=== PATIENT | male | born 1940 | race African-American/Black ===

== ENCOUNTER 2017-03-30 13:36 | Emergency (ER) | payer OTHER ==
--- NOTE | 2017-03-30 14:11 | PDOC ---
Rapid Medical Evaluation Time Seen by Provider: 03/30/17 14:09 Medical Evaluation: Allergies Allergy/AdvReac Type Severity Reaction Status Date / Time No Known Allergies Allergy Verified 03/30/17 14:08 03/30/17 14:09 I have performed a brief in-person evaluation of this patient. The patient presents with a chief complaint of: slip and fall at home last night w/ L hand and lower back pain, did not hit head. H/o asthma, on asa Pertinent physical exam findings:minimal swelling over dorsum of L hand/wrist I have ordered the following:hand/wrist xray The patient will proceed to the ED for further evaluation.
[2017-03-30 14:15] VITALS: BP 140/74; PULSE 70; TEMP 98.2; BMI 24.4
[2017-03-30] MEDS ORDERED: IBUPROFEN 600 MG TABLET (FP) PO ONE ×2 (15:27→15:32)
--- NOTE | 2017-03-30 15:33 | PDOC ---
History of Present Illness - General Chief Complaint: Injury Stated Complaint: FALL/ SWOLLEN LT HAND, BACK PAIN Time Seen by Provider: 03/30/17 14:09 History Source: Patient Exam Limitations: No Limitations - History of Present Illness Initial Comments: 03/30/17 15:33 This is a 76-year-old left-hand dominant man without significant past medical history who presents to the emergency department today with left wrist pain status post slip and fall last night. Patient states she had mopped his hardwood floors in his apartment a mobile floors are still wet, he tried to stand from a beachchair which slid on the floor. Patient fell towards his right hand side turns and landed with his left wrist extended. Patient strep buttocks on the floor at the same time. Denies head trauma. Patient was able to get himself off floor without difficulty. He denies headaches, blurry vision, head trauma, chest pain, shortness of breath, abdominal pain, nausea, vomiting, dizziness. Past History - Past Medical History Allergies/Adverse Reactions: Allergies Allergy/AdvReac Type Severity Reaction Status Date / Time No Known Allergies Allergy Verified 03/30/17 14:08 COPD: No DVT: No - Immunization History Immunization Up to Date: Yes - Suicide/Smoking/Psychosocial Hx Smoking History: Current every day smoker Have you smoked in the past 12 months: No Number of Cigarettes Smoked Daily: 4 Information on smoking cessation initiated: No Hx Alcohol Use: No Drug/Substance Use Hx: No Review of Systems - Review of Systems Able to Perform ROS?: Yes Is the patient limited French proficient: No Constitutional: No: Symptoms Reported HEENTM: No: Symptoms Reported Respiratory: No: Symptoms reported Cardiac (ROS): No: Symptoms Reported ABD/GI: No: Symptoms Reported : No: Symptoms Reported Musculoskeletal: Yes: See HPI Integumentary: No: Symptoms Reported Neurological: No: Symptoms reported Endocrine: No: Symptoms Reported Hematologic/Lymphatic: No: Symptoms Reported *Physical Exam - Vital Signs Last Vital Signs Temp Pulse Resp BP Pulse Ox 98.2 F 70 16 140/74 96 03/30/17 14:09 03/30/17 14:09 03/30/17 14:09 03/30/17 14:09 03/30/17 14:09 - Physical Exam General Appearance: Yes: Appropriately Dressed. No: Apparent Distress Respiratory/Chest: positive: Lungs Clear, Normal Breath Sounds. negative: Respiratory Distress, Accessory Muscle Use Cardiovascular: positive: Regular Rhythm, Regular Rate, Other (2+ radial and ulnar pulse). negative: Edema, Murmur Musculoskeletal: positive: Other (Swelling noted to the dorsum of the left hand over second metacarpal) Extremity: positive: Other (Swelling noted to the dorsum of the left hand over second metacarpal) Neurologic: positive: Fully Oriented, Alert, Normal Mood/Affect, Normal Response , Motor Strength 5/5 Medical Decision Making - Medical Decision Making 03/30/17 15:31 A/P: 76-year-old man with wrist pain status post slip and fall on wet floor last night. Swelling noted to the dorsum of the left hand over the second metacarpal. Full range of motion against resistance of wrist and fingers. +2 radial and normal pulses. 600 mg of Motrin now X-ray of left hand and wrist. 03/30/17 15:52 X-rays read by me: No acute bony deformity noted. Soft tissue swelling presents over the second metacarpal bone. [place] bandage. Discharge I discussed the physical exam findings, ancillary test results and final diagnoses with the patient. I answered all of the patient's questions. The patient was satisfied with the care received and felt comfortable with the discharge plan and treatment plan. The patient will call his doctor within 96 hours to arrange follow-up and will return to the Emergency Department with any new, persistent or worsening symptoms. *DC/Admit/Observation/Transfer Diagnosis at time of Disposition: Left hand pain - Discharge Dispostion Disposition: HOME Condition at time of disposition: Stable Admit: No - Referrals Referrals: ON STAFF,NOT [Primary Care Provider] - - Patient Instructions Additional Instructions: Rest hand. Take Tylenol or Motrin as needed for pain. Follow manufacturers instructions for appropriate dosage. Use ice for 20 minutes then remove for a minimum of 20 mid before reapplying. Keep hand elevated as often as possible. Return to emergency department for worsening pain, discoloration of your fingers , loss of sensation or movement to fingers, pressure-like sensation in the hand , any other concerns. Thank you very much for choosing us to provide your emergent healthcare needs. - Post Discharge Activity
== END 2017-03-30 15:56 | disposition home or self-care (01) ==
LOC: JERFT 13:36
DX: M79.642 Pain in left hand (principal); F17.210 Nicotine dependence, cigarettes, uncomplicated; W01.0XXA Fall on same level from slipping, tripping and stumbling without subsequent striking against object, initial encounter; Y93.89 Activity, other specified; Y92.9 Unspecified place or not applicable
CPT/HCPCS: 73110-TC-LT; 73130-TC-LT; 99281-25

== ENCOUNTER 2021-02-28 17:01 | Inpatient (IN) | payer OTHER ==
[2021-02-28] MEDS ORDERED: SODIUM CHLORIDE IV ONE (20:02)
[2021-02-28] MEDS ORDERED: ACETAMINOPHEN 1000 MG/100 ML BAG IVPB ONE (20:05)
[2021-02-28] MEDS ORDERED: SODIUM CHLORIDE 0.9% 500 ML INFUS.BAG IV ONE (20:46)
[2021-02-28] MEDS ORDERED: ALBUTEROL SO4 2.5/IPRATROPIUM 0.5 INH SOL 3 ML VIAL.NEB. NEB ONE (21:05)
[2021-02-28] MEDS ORDERED: ACETAMINOPHEN INJECTION 100 ML IVPB ONE (21:06)
[2021-02-28] MEDS: ALBUTEROL SO4 2.5/IPRATROPIUM 0.5 INH SOL 3 ML VIAL.NEB. NEB SCH ×3 (22:07→23:11)
[2021-02-28 22:31] LABS: BASO % 0.3 % (0-2.0); HEMATOCRIT 43.1 % (35.4-49); HEMOGLOBIN 14.3 GM/dL (11.7-16.9); LYMPH % 19.8 % (8-40); MCH 30.9 pg (25.7-33.7); MCHC 33.2 g/dl (32.0-35.9); MEAN CELL VOLUME 93.1 fl (80-96); MEAN PLT VOLUME 10.4 fl (7.5-11.1); MONO % 9.6 % (3.8-10.2); NEUT % 70.3 % (42.8-82.8); PLATELET COUNT 98 10^3/uL (134-434); RBC 4.63 M/mm3 (4.00-5.60); WHITE BLOOD COUNT 7.1 K/mm3 (4.0-10.0)
[2021-02-28 22:40] LABS: INR 1.14 (0.83-1.09); PROTHROMBIN TIME (PATIENT) 13.4 SEC (9.7-13.0)
[2021-02-28 22:43] LABS: ACTIVATED PTT 33.1 SECONDS (25.2-36.5)
[2021-02-28 22:56] LABS: ALBUMIN 4.1 g/dl (3.4-5.0)
[2021-02-28 23:00] LABS: BILIRUBIN,TOTAL 1.5 mg/dL (0.2-1); TOT PROT 7.5 g/dl (6.4-8.2)
[2021-02-28 23:04] LABS: N-TERMINAL BNP 264.7 pg/ml (5-450)
[2021-02-28] MEDS ORDERED: AZITHROMYCIN IVPB 500 MG in DEXTROSE 5%-WATER - 250 ML IVPB ONE (23:13)
[2021-02-28] MEDS ORDERED: CEFTRIAXONE 1,000 MG in DEXTROSE 5%-WATER - 50 ML IVPB ONE (23:14)
[2021-02-28] MEDS ORDERED: AZITHROMYCIN IVPB 500 MG/250 ML BAG IVPB ONE (23:31)
[2021-02-28] MEDS ORDERED: CEFTRIAXONE 1 GM/50 ML BAG ONE (23:31)
[2021-02-28] MEDS ORDERED: DEXAMETHASONE SOD PHOSPHATE 10 MG/1 ML VIAL IVPUSH ONE (23:37)
[2021-03-01] MEDS ORDERED: DEXAMETHASONE SOD PHOSPHATE 10 MG/1 ML VIAL ONE (01:24)
[2021-03-01 02:01] LABS: EPI CELLS 2 /uL (0-25.1); HYALINE CASTS 0 /uL (0-3.1); URINE APPEARANCE CLEAR; URINE BACTERIA 4 /uL (0-1359); URINE BILIRUBIN NEGATIVE (NEGATIVE); URINE COLOR YELLOW; URINE GLUCOSE (UA) NEGATIVE (NEGATIVE); URINE KETONE 2+ (NEGATIVE); URINE LEUK ESTERASE NEGATIVE (NEGATIVE); URINE NITRITE NEGATIVE (NEGATIVE); URINE PROTEIN 1+ (NEGATIVE); URINE RBC 18 /uL (0-23.9); URINE WBC 3 /uL (0-25.8)
[2021-03-01] MEDS ORDERED: amLODIPine BESYLATE 5 MG TABLET (FP) PO ONE (02:24)
[2021-03-01] MEDS ORDERED: amLODIPine BESYLATE 5 MG TABLET (FP) ONE ×2 (02:44→08:25)
[2021-03-01 03:23] LABS: BLOOD UREA NITROGEN 26.1 mg/dL (7-18); CALCIUM 8.1 mg/dL (8.5-10.1); MAGNESIUM 2.2 mg/dL (1.8-2.4)
[2021-03-01 03:27] LABS: CREATININE 0.9 mg/dL (0.55-1.3); PHOSPHOROUS 2.6 mg/dL (2.5-4.9)
[2021-03-01 03:28] LABS: BILIRUBIN,TOTAL 1.1 mg/dL (0.2-1); TOT PROT 6.7 g/dl (6.4-8.2)
[2021-03-01 03:33] LABS: ALBUMIN 3.6 g/dl (3.4-5.0)
[2021-03-01] MEDS ORDERED: LABETALOL HCL 100 MG TABLET (FP) PO ONE (03:45)
[2021-03-01] MEDS ORDERED: LABETALOL HCL 100 MG TABLET (FP) ONE (04:18)
[2021-03-01] MEDS ORDERED: ALBUTEROL SO4 HFA INHALER IH PRN (04:59)
[2021-03-01 05:32] LABS: VENOUS BASE EXCESS 1.7 mmol/L (-2-2); VENOUS O2 SATURATION 92.1 % (70-80); VENOUS PCO2 34.7 mmHg (38-52); VENOUS PH 7.473 (7.310-7.410)
[2021-03-01] MEDS ORDERED: ASCORBIC ACID 500 MG TABLET (FP) ONE (08:23)
[2021-03-01] MEDS ORDERED: CHOLECALCIFEROL (VIT D3) 1,000 UNIT (25 MCG) TABLET ONE (08:23)
[2021-03-01] MEDS ORDERED: ZINC SULFATE 220 MG CAPSULE (FP) ONE (08:23)
[2021-03-01] MEDS ORDERED: FAMOTIDINE 20 MG/50 ML IVPB 20 MG/50 ML MG IVPB ONE (08:23)
[2021-03-01] MEDS ORDERED: DOXYCYCLINE HYCLATE 100 MG VIAL ONE ×2 (08:26→21:31)
[2021-03-01] MEDS ORDERED: CEFTRIAXONE 1 GM/50 ML BAG ONE (08:26)
[2021-03-01] MEDS: ENOXAPARIN NA (PORCINE) 40 MG/0.4 ML DISP.SYRIN SQ SCH (09:28)
[2021-03-01] MEDS: FAMOTIDINE 20 MG/50 ML IVPB 20 MG/50 ML MG IVPB SCH ×2 (09:28→22:03)
[2021-03-01] MEDS: ZINC SULFATE 220 MG CAPSULE (FP) PO SCH (09:28)
[2021-03-01] MEDS: CEFTRIAXONE 1 GM in DEXTROSE 5%-WATER - 50 ML IVPB SCH (09:28)
[2021-03-01] MEDS: amLODIPine BESYLATE 5 MG TABLET (FP) PO SCH (09:28)
[2021-03-01] MEDS: BUDESONIDE/FORMETEROL FUMARATE 160/4.5 mcg INHALER IH SCH ×2 (09:29→23:05)
[2021-03-01] MEDS: DOXYCYCLINE INJECTION 100 MG in DEXTROSE 5%-WATER 100 ML IVPB SCH ×2 (09:29→22:11)
[2021-03-01] MEDS: ASCORBIC ACID 250 MG TABLET (FP) PO SCH (09:29)
[2021-03-01] MEDS: CHOLECALCIFEROL (VIT D3) 1,000 UNIT (25 MCG) TABLET PO SCH (09:29)
[2021-03-01] MEDS ORDERED: DEXTROSE 5%-WATER 100 ML IVPB ONE (21:31)
[2021-03-01] MEDS ORDERED: PT OWN MED DRAWER 7, Y5N ONE (23:05)
[2021-03-02] MEDS ORDERED: DOXYCYCLINE HYCLATE 100 MG VIAL ONE ×3 (09:28→21:03)
[2021-03-02] MEDS ORDERED: DEXTROSE 5%-WATER 100 ML IVPB ONE ×3 (09:28→21:03)
[2021-03-02] MEDS ORDERED: cefTRIAXone SODIUM 1 GM VIAL ONE (09:29)
[2021-03-02] MEDS ORDERED: DEXTROSE 5%-WATER - 50 ML IVPB ONE (09:29)
[2021-03-02] MEDS: CEFTRIAXONE 1 GM in DEXTROSE 5%-WATER - 50 ML IVPB SCH (09:34)
[2021-03-02] MEDS: DOXYCYCLINE INJECTION 100 MG in DEXTROSE 5%-WATER 100 ML IVPB SCH ×2 (09:34→21:22)
[2021-03-02] MEDS: ASCORBIC ACID 250 MG TABLET (FP) PO SCH (09:34)
[2021-03-02] MEDS: ENOXAPARIN NA (PORCINE) 40 MG/0.4 ML DISP.SYRIN SQ SCH (09:34)
[2021-03-02] MEDS: FINASTERIDE 5 MG TABLET (FP) PO SCH (09:35)
[2021-03-02] MEDS: ZINC SULFATE 220 MG CAPSULE (FP) PO SCH (09:35)
[2021-03-02] MEDS: amLODIPine BESYLATE 5 MG TABLET (FP) PO SCH (09:35)
[2021-03-02] MEDS: CHOLECALCIFEROL (VIT D3) 1,000 UNIT (25 MCG) TABLET PO SCH (09:35)
[2021-03-02] MEDS: methaDONE HCL 40 MG DISPERSABLE TABLET PO SCH (11:32)
[2021-03-02] MEDS ORDERED: LORazepam 2 MG/ML SDV VIAL IM ONE (11:45)
[2021-03-02] MEDS ORDERED: REMDESIVIR 200 MG in SODIUM CHLORIDE 250 ML IVPB ONE (12:00)
[2021-03-02] MEDS: BUDESONIDE/FORMETEROL FUMARATE 160/4.5 mcg INHALER IH SCH ×2 (12:00→22:29)
[2021-03-02] MEDS: FAMOTIDINE 20 MG/50 ML IVPB 20 MG/50 ML MG IVPB SCH ×2 (12:58→22:29)
[2021-03-03] MEDS: methaDONE HCL 40 MG DISPERSABLE TABLET PO SCH (06:33)
[2021-03-03 09:35] LABS: BASO % 0.2 % (0-2.0); EOS % 0.1 % (0-4.5); HEMATOCRIT 41.4 % (35.4-49); HEMOGLOBIN 13.5 GM/dL (11.7-16.9); LYMPH % 22.9 % (8-40); MCH 30.2 pg (25.7-33.7); MCHC 32.6 g/dl (32.0-35.9); MEAN CELL VOLUME 92.7 fl (80-96); MONO % 10.9 % (3.8-10.2); NEUT % 65.9 % (42.8-82.8); PLATELET COUNT 101 10^3/uL (134-434); RBC 4.46 M/mm3 (4.00-5.60); RDW 12.9 % (11.9-15.9); WHITE BLOOD COUNT 5.9 K/mm3 (4.0-10.0)
[2021-03-03 10:03] LABS: CALCIUM 8.5 mg/dL (8.5-10.1)
[2021-03-03 10:06] LABS: CREATININE 0.9 mg/dL (0.55-1.3)
[2021-03-03] MEDS ORDERED: cefTRIAXone SODIUM 1 GM VIAL ONE (10:07)
[2021-03-03] MEDS ORDERED: DEXTROSE 5%-WATER - 50 ML IVPB ONE (10:07)
[2021-03-03] MEDS: ASCORBIC ACID 250 MG TABLET (FP) PO SCH (10:13)
[2021-03-03] MEDS: amLODIPine BESYLATE 5 MG TABLET (FP) PO SCH (10:13)
[2021-03-03] MEDS: ZINC SULFATE 220 MG CAPSULE (FP) PO SCH (10:13)
[2021-03-03] MEDS: CHOLECALCIFEROL (VIT D3) 1,000 UNIT (25 MCG) TABLET PO SCH (10:13)
[2021-03-03] MEDS: CEFTRIAXONE 1 GM in DEXTROSE 5%-WATER - 50 ML IVPB SCH (10:13)
[2021-03-03] MEDS: ENOXAPARIN NA (PORCINE) 40 MG/0.4 ML DISP.SYRIN SQ SCH (10:13)
[2021-03-03] MEDS: FINASTERIDE 5 MG TABLET (FP) PO SCH (10:13)
[2021-03-03] MEDS: BUDESONIDE/FORMETEROL FUMARATE 160/4.5 mcg INHALER IH SCH ×2 (10:34→21:17)
[2021-03-03] MEDS: FAMOTIDINE 20 MG/50 ML IVPB 20 MG/50 ML MG IVPB SCH ×2 (10:57→22:24)
[2021-03-03] MEDS ORDERED: POTASSIUM CHLORIDE TABS 20 MEQ TABLET.ER (FP) PO ONE (15:31)
[2021-03-03] MEDS: REMDESIVIR 100 MG in SODIUM CHLORIDE 250 ML IVPB SCH (16:19)
[2021-03-04] MEDS: methaDONE HCL 40 MG DISPERSABLE TABLET PO SCH (06:18)
[2021-03-04] MEDS ORDERED: DEXTROSE 5%-WATER - 50 ML IVPB ONE (09:27)
[2021-03-04] MEDS ORDERED: cefTRIAXone SODIUM 1 GM VIAL ONE (09:27)
[2021-03-04 10:02] LABS: HEMATOCRIT 40.5 % (35.4-49); HEMOGLOBIN 13.6 GM/dL (11.7-16.9); MCH 31.2 pg (25.7-33.7); MCHC 33.4 g/dl (32.0-35.9); MEAN CELL VOLUME 93.2 fl (80-96); PLATELET COUNT 124 10^3/uL (134-434); RBC 4.35 M/mm3 (4.00-5.60)
[2021-03-04] MEDS: ENOXAPARIN NA (PORCINE) 40 MG/0.4 ML DISP.SYRIN SQ SCH (10:29)
[2021-03-04] MEDS: FAMOTIDINE 20 MG/50 ML IVPB 20 MG/50 ML MG IVPB SCH ×2 (10:30→21:20)
[2021-03-04] MEDS: CEFTRIAXONE 1 GM in DEXTROSE 5%-WATER - 50 ML IVPB SCH (10:30)
[2021-03-04 10:31] LABS: CALCIUM 8.8 mg/dL (8.5-10.1)
[2021-03-04] MEDS: CHOLECALCIFEROL (VIT D3) 1,000 UNIT (25 MCG) TABLET PO SCH (10:31)
[2021-03-04] MEDS: amLODIPine BESYLATE 5 MG TABLET (FP) PO SCH (10:31)
[2021-03-04] MEDS: FINASTERIDE 5 MG TABLET (FP) PO SCH (10:31)
[2021-03-04] MEDS: ZINC SULFATE 220 MG CAPSULE (FP) PO SCH (10:31)
[2021-03-04] MEDS: ASCORBIC ACID 250 MG TABLET (FP) PO SCH (10:31)
[2021-03-04 10:32] LABS: ALBUMIN 3.3 g/dl (3.4-5.0); BLOOD UREA NITROGEN 29.8 mg/dL (7-18)
[2021-03-04] MEDS: BUDESONIDE/FORMETEROL FUMARATE 160/4.5 mcg INHALER IH SCH ×2 (10:32→21:20)
[2021-03-04 10:35] LABS: CREATININE 0.8 mg/dL (0.55-1.3)
[2021-03-04 10:37] LABS: BILIRUBIN,TOTAL 1.4 mg/dL (0.2-1)
[2021-03-04] MEDS: REMDESIVIR 100 MG in SODIUM CHLORIDE 250 ML IVPB SCH (12:24)
[2021-03-05] MEDS: methaDONE HCL 40 MG DISPERSABLE TABLET PO SCH (05:35)
[2021-03-05 10:07] LABS: HEMATOCRIT 40.6 % (35.4-49); HEMOGLOBIN 13.3 GM/dL (11.7-16.9); MCH 30.6 pg (25.7-33.7); MCHC 32.7 g/dl (32.0-35.9); MEAN CELL VOLUME 93.8 fl (80-96); MEAN PLT VOLUME 9.5 fl (7.5-11.1); PLATELET COUNT 183 10^3/uL (134-434); RBC 4.33 M/mm3 (4.00-5.60); WHITE BLOOD COUNT 7.6 K/mm3 (4.0-10.0)
[2021-03-05] MEDS: FAMOTIDINE 20 MG/50 ML IVPB 20 MG/50 ML MG IVPB SCH ×2 (10:22→21:11)
[2021-03-05] MEDS: ZINC SULFATE 220 MG CAPSULE (FP) PO SCH (10:22)
[2021-03-05] MEDS: FINASTERIDE 5 MG TABLET (FP) PO SCH (10:22)
[2021-03-05] MEDS: QUEtiapine FUMARATE 50 MG TABLET PO SCH ×2 (10:22→21:11)
[2021-03-05] MEDS: amLODIPine BESYLATE 5 MG TABLET (FP) PO SCH (10:22)
[2021-03-05] MEDS: ASCORBIC ACID 250 MG TABLET (FP) PO SCH (10:22)
[2021-03-05] MEDS: CHOLECALCIFEROL (VIT D3) 1,000 UNIT (25 MCG) TABLET PO SCH (10:22)
[2021-03-05] MEDS: ENOXAPARIN NA (PORCINE) 40 MG/0.4 ML DISP.SYRIN SQ SCH (10:23)
[2021-03-05] MEDS: BUDESONIDE/FORMETEROL FUMARATE 160/4.5 mcg INHALER IH SCH ×2 (10:23→21:12)
[2021-03-05 10:29] LABS: ALBUMIN 3.6 g/dl (3.4-5.0); BLOOD UREA NITROGEN 30.3 mg/dL (7-18); CALCIUM 9.1 mg/dL (8.5-10.1)
[2021-03-05 10:32] LABS: CREATININE 0.8 mg/dL (0.55-1.3)
[2021-03-05 10:34] LABS: BILIRUBIN,TOTAL 1.5 mg/dL (0.2-1); TOT PROT 7.2 g/dl (6.4-8.2)
[2021-03-06] MEDS: methaDONE HCL 40 MG DISPERSABLE TABLET PO SCH (06:04)
[2021-03-06] MEDS: ASCORBIC ACID 250 MG TABLET (FP) PO SCH (09:54)
[2021-03-06] MEDS: FINASTERIDE 5 MG TABLET (FP) PO SCH (09:54)
[2021-03-06] MEDS: CHOLECALCIFEROL (VIT D3) 1,000 UNIT (25 MCG) TABLET PO SCH (09:54)
[2021-03-06] MEDS: amLODIPine BESYLATE 5 MG TABLET (FP) PO SCH (09:54)
[2021-03-06] MEDS: ENOXAPARIN NA (PORCINE) 40 MG/0.4 ML DISP.SYRIN SQ SCH (09:54)
[2021-03-06] MEDS: QUEtiapine FUMARATE 50 MG TABLET PO SCH ×2 (09:54→21:50)
[2021-03-06] MEDS: ZINC SULFATE 220 MG CAPSULE (FP) PO SCH (09:54)
[2021-03-06] MEDS: BUDESONIDE/FORMETEROL FUMARATE 160/4.5 mcg INHALER IH SCH ×2 (09:55→21:51)
[2021-03-06] MEDS: FAMOTIDINE 20 MG/50 ML IVPB 20 MG/50 ML MG IVPB SCH ×2 (09:55→21:50)
[2021-03-07] MEDS: methaDONE HCL 40 MG DISPERSABLE TABLET PO SCH (06:22)
[2021-03-07 08:34] LABS: HEMATOCRIT 41.2 % (35.4-49); HEMOGLOBIN 13.8 GM/dL (11.7-16.9); MCH 31.4 pg (25.7-33.7); MCHC 33.5 g/dl (32.0-35.9); MEAN CELL VOLUME 93.7 fl (80-96); MEAN PLT VOLUME 8.9 fl (7.5-11.1); PLATELET COUNT 249 10^3/uL (134-434); RBC 4.39 M/mm3 (4.00-5.60); RDW 13.2 % (11.9-15.9); WHITE BLOOD COUNT 7.3 K/mm3 (4.0-10.0)
[2021-03-07 09:16] LABS: ALBUMIN 3.6 g/dl (3.4-5.0); BLOOD UREA NITROGEN 47.1 mg/dL (7-18); CALCIUM 9.2 mg/dL (8.5-10.1)
[2021-03-07 09:19] LABS: CREATININE 0.8 mg/dL (0.55-1.3)
[2021-03-07 09:20] LABS: TOT PROT 7.2 g/dl (6.4-8.2)
[2021-03-07 09:21] LABS: BILIRUBIN,TOTAL 1.1 mg/dL (0.2-1)
[2021-03-07] MEDS: ENOXAPARIN NA (PORCINE) 40 MG/0.4 ML DISP.SYRIN SQ SCH (10:53)
[2021-03-07] MEDS: FAMOTIDINE 20 MG/50 ML IVPB 20 MG/50 ML MG IVPB SCH ×2 (10:53→22:12)
[2021-03-07] MEDS: BUDESONIDE/FORMETEROL FUMARATE 160/4.5 mcg INHALER IH SCH ×2 (10:54→22:12)
[2021-03-07] MEDS: CHOLECALCIFEROL (VIT D3) 1,000 UNIT (25 MCG) TABLET PO SCH (10:54)
[2021-03-07] MEDS: ASCORBIC ACID 250 MG TABLET (FP) PO SCH (10:54)
[2021-03-07] MEDS: FINASTERIDE 5 MG TABLET (FP) PO SCH (10:54)
[2021-03-07] MEDS: amLODIPine BESYLATE 5 MG TABLET (FP) PO SCH (10:54)
[2021-03-07] MEDS: QUEtiapine FUMARATE 50 MG TABLET PO SCH ×2 (10:54→22:12)
[2021-03-07] MEDS: ZINC SULFATE 220 MG CAPSULE (FP) PO SCH (10:54)
[2021-03-07 17:39] VITALS: BMI 24.6
[2021-03-08] MEDS: methaDONE HCL 40 MG DISPERSABLE TABLET PO SCH (06:13)
[2021-03-08] MEDS: FINASTERIDE 5 MG TABLET (FP) PO SCH (09:19)
[2021-03-08] MEDS: ASCORBIC ACID 250 MG TABLET (FP) PO SCH (09:19)
[2021-03-08] MEDS: CHOLECALCIFEROL (VIT D3) 1,000 UNIT (25 MCG) TABLET PO SCH (09:19)
[2021-03-08] MEDS: amLODIPine BESYLATE 5 MG TABLET (FP) PO SCH (09:19)
[2021-03-08] MEDS: ZINC SULFATE 220 MG CAPSULE (FP) PO SCH (09:19)
[2021-03-08] MEDS: QUEtiapine FUMARATE 50 MG TABLET PO SCH (09:19)
[2021-03-08] MEDS: ENOXAPARIN NA (PORCINE) 40 MG/0.4 ML DISP.SYRIN SQ SCH (09:20)
[2021-03-08] MEDS: BUDESONIDE/FORMETEROL FUMARATE 160/4.5 mcg INHALER IH SCH ×2 (09:20→21:44)
[2021-03-08] MEDS: FAMOTIDINE 20 MG/50 ML IVPB 20 MG/50 ML MG IVPB SCH ×2 (09:20→21:43)
[2021-03-08 09:37] LABS: CALCIUM 9.4 mg/dL (8.5-10.1)
[2021-03-08 09:38] LABS: BLOOD UREA NITROGEN 51.6 mg/dL (7-18)
[2021-03-08 09:41] LABS: CREATININE 0.9 mg/dL (0.55-1.3)
[2021-03-08] MEDS: SODIUM CHLORIDE 0.45% 1,000 ML IV SCH ×2 (11:22→18:13)
[2021-03-08] MEDS: QUEtiapine FUMARATE 25 MG TABLET PO SCH (21:43)
[2021-03-09] MEDS: methaDONE HCL 40 MG DISPERSABLE TABLET PO SCH (05:33)
[2021-03-09 09:24] LABS: HEMOGLOBIN 13.2 GM/dL (11.7-16.9); MCH 30.6 pg (25.7-33.7); MEAN CELL VOLUME 95.6 fl (80-96); MEAN PLT VOLUME 9.1 fl (7.5-11.1); PLATELET COUNT 324 10^3/uL (134-434); RBC 4.29 M/mm3 (4.00-5.60); RDW 13.2 % (11.9-15.9); WHITE BLOOD COUNT 6.7 K/mm3 (4.0-10.0)
[2021-03-09 09:32] LABS: CALCIUM 8.9 mg/dL (8.5-10.1)
[2021-03-09 09:33] LABS: ALBUMIN 3.4 g/dl (3.4-5.0); BLOOD UREA NITROGEN 38.4 mg/dL (7-18)
[2021-03-09 09:36] LABS: CREATININE 0.9 mg/dL (0.55-1.3)
[2021-03-09 09:38] LABS: TOT PROT 7.1 g/dl (6.4-8.2)
[2021-03-09] MEDS: ASCORBIC ACID 250 MG TABLET (FP) PO SCH (10:03)
[2021-03-09] MEDS: FINASTERIDE 5 MG TABLET (FP) PO SCH (10:03)
[2021-03-09] MEDS: amLODIPine BESYLATE 5 MG TABLET (FP) PO SCH (10:03)
[2021-03-09] MEDS: ENOXAPARIN NA (PORCINE) 40 MG/0.4 ML DISP.SYRIN SQ SCH (10:03)
[2021-03-09] MEDS: CHOLECALCIFEROL (VIT D3) 1,000 UNIT (25 MCG) TABLET PO SCH (10:04)
[2021-03-09] MEDS: BUDESONIDE/FORMETEROL FUMARATE 160/4.5 mcg INHALER IH SCH ×2 (10:04→21:07)
[2021-03-09] MEDS: ZINC SULFATE 220 MG CAPSULE (FP) PO SCH (10:04)
[2021-03-09] MEDS: FAMOTIDINE 20 MG/50 ML IVPB 20 MG/50 ML MG IVPB SCH ×2 (10:04→21:07)
[2021-03-09] MEDS: QUEtiapine FUMARATE 25 MG TABLET PO SCH ×2 (10:04→21:07)
[2021-03-09] MEDS: SODIUM CHLORIDE 0.45% 1,000 ML IV SCH ×2 (10:06→17:59)
[2021-03-10] MEDS: SODIUM CHLORIDE 0.45% 1,000 ML IV SCH ×4 (00:13→21:23)
[2021-03-10] MEDS: methaDONE HCL 40 MG DISPERSABLE TABLET PO SCH (05:51)
[2021-03-10 08:29] LABS: BASO % 0.6 % (0-2.0); EOS % 1.4 % (0-4.5); HEMATOCRIT 37.3 % (35.4-49); HEMOGLOBIN 12.6 GM/dL (11.7-16.9); LYMPH % 22.4 % (8-40); MCH 31.6 pg (25.7-33.7); MCHC 33.8 g/dl (32.0-35.9); MEAN CELL VOLUME 93.5 fl (80-96); MEAN PLT VOLUME 8.9 fl (7.5-11.1); NEUT % 68.6 % (42.8-82.8); PLATELET COUNT 297 10^3/uL (134-434); RBC 3.99 M/mm3 (4.00-5.60)
[2021-03-10] MEDS: CHOLECALCIFEROL (VIT D3) 1,000 UNIT (25 MCG) TABLET PO SCH (09:37)
[2021-03-10] MEDS: ZINC SULFATE 220 MG CAPSULE (FP) PO SCH (09:37)
[2021-03-10] MEDS: FINASTERIDE 5 MG TABLET (FP) PO SCH (09:37)
[2021-03-10] MEDS: ASCORBIC ACID 250 MG TABLET (FP) PO SCH (09:37)
[2021-03-10] MEDS: FAMOTIDINE 20 MG/50 ML IVPB 20 MG/50 ML MG IVPB SCH ×2 (09:38→20:59)
[2021-03-10] MEDS: ENOXAPARIN NA (PORCINE) 40 MG/0.4 ML DISP.SYRIN SQ SCH (09:38)
[2021-03-10] MEDS: amLODIPine BESYLATE 5 MG TABLET (FP) PO SCH (09:38)
[2021-03-10] MEDS: BUDESONIDE/FORMETEROL FUMARATE 160/4.5 mcg INHALER IH SCH ×2 (09:39→21:00)
[2021-03-10] MEDS: QUEtiapine FUMARATE 25 MG TABLET PO SCH ×3 (09:39→21:00)
[2021-03-10 14:01] LABS: ALBUMIN 3.4 g/dl (3.4-5.0); BLOOD UREA NITROGEN 26.3 mg/dL (7-18); CALCIUM 9.1 mg/dL (8.5-10.1)
[2021-03-10 14:04] LABS: CREATININE 0.9 mg/dL (0.55-1.3)
[2021-03-10 14:08] LABS: TOT PROT 6.7 g/dl (6.4-8.2)
[2021-03-10 14:15] LABS: BILIRUBIN,TOTAL 1.9 mg/dL (0.2-1)
[2021-03-11] MEDS: methaDONE HCL 40 MG DISPERSABLE TABLET PO SCH (05:43)
[2021-03-11] MEDS: QUEtiapine FUMARATE 25 MG TABLET PO SCH ×2 (05:44→13:54)
[2021-03-11 09:52] LABS: BASO % 0.6 % (0-2.0); EOS % 1.4 % (0-4.5); HEMATOCRIT 36.7 % (35.4-49); HEMOGLOBIN 11.8 GM/dL (11.7-16.9); LYMPH % 24.8 % (8-40); MCH 30.4 pg (25.7-33.7); MCHC 32.2 g/dl (32.0-35.9); MEAN CELL VOLUME 94.4 fl (80-96); MEAN PLT VOLUME 9.1 fl (7.5-11.1); NEUT % 66.2 % (42.8-82.8); PLATELET COUNT 286 10^3/uL (134-434); RBC 3.89 M/mm3 (4.00-5.60); RDW 12.9 % (11.9-15.9); WHITE BLOOD COUNT 6.9 K/mm3 (4.0-10.0)
[2021-03-11 10:06] LABS: CALCIUM 8.7 mg/dL (8.5-10.1)
[2021-03-11 10:07] LABS: BLOOD UREA NITROGEN 22.8 mg/dL (7-18)
[2021-03-11 10:10] LABS: CREATININE 0.7 mg/dL (0.55-1.3)
[2021-03-11 10:12] LABS: BILIRUBIN,TOTAL 1.2 mg/dL (0.2-1); TOT PROT 6.2 g/dl (6.4-8.2)
[2021-03-11] MEDS: ZINC SULFATE 220 MG CAPSULE (FP) PO SCH (10:44)
[2021-03-11] MEDS: FINASTERIDE 5 MG TABLET (FP) PO SCH (10:44)
[2021-03-11] MEDS: ASCORBIC ACID 250 MG TABLET (FP) PO SCH (10:44)
[2021-03-11] MEDS: FAMOTIDINE 20 MG/50 ML IVPB 20 MG/50 ML MG IVPB SCH (10:44)
[2021-03-11] MEDS: amLODIPine BESYLATE 5 MG TABLET (FP) PO SCH (10:44)
[2021-03-11] MEDS: SODIUM CHLORIDE 0.45% 1,000 ML IV SCH (10:45)
[2021-03-11] MEDS: CHOLECALCIFEROL (VIT D3) 1,000 UNIT (25 MCG) TABLET PO SCH (10:45)
[2021-03-11] MEDS: BUDESONIDE/FORMETEROL FUMARATE 160/4.5 mcg INHALER IH SCH (10:46)
[2021-03-11] MEDS: ENOXAPARIN NA (PORCINE) 40 MG/0.4 ML DISP.SYRIN SQ SCH (10:46)
[2021-03-11 11:00] VITALS: BP 161/76; PULSE 75; TEMP 98.4
== END 2021-03-11 19:33 | DRG 177 ==
LOC: JER 17:01 → JERBED 20:03 → J8W 03-01 10:07
PROVIDERS: ADMIT Internal Medicine; ATTEND Internal Medicine
PROC: XW033E5 Introduction of Remdesivir Anti-infective into Peripheral Vein, Percutaneous Approach, New Technology Group 5 (ICD-10-PCS; principal; 2021-03-02)
DX: U07.1 COVID-19 (principal); G92.8 Other toxic encephalopathy; J12.82 Pneumonia due to coronavirus disease 2019; S22.080A Wedge compression fracture of T11-T12 vertebra, initial encounter for closed fracture; F11.20 Opioid dependence, uncomplicated; N17.9 Acute kidney failure, unspecified; E87.0 Hyperosmolality and hypernatremia; I10 Essential (primary) hypertension; J45.909 Unspecified asthma, uncomplicated; R91.1 Solitary pulmonary nodule; R26.81 Unsteadiness on feet; K40.90 Unilateral inguinal hernia, without obstruction or gangrene, not specified as recurrent; R94.31 Abnormal electrocardiogram [ECG] [EKG]; W19.XXXA Unspecified fall, initial encounter; Y93.89 Activity, other specified; Y92.009 Unspecified place in unspecified non-institutional (private) residence as the place of occurrence of the external cause; Y99.8 Other external cause status
CPT/HCPCS: 36415; 70450-TC; 71045-TC-FY; 71260-TC; 72125-TC; 74177-TC; 80048; 80053; 81003; 82085; 82140; 82550; 82553; 82607; 82803; 82977; 83036; 83605; 83735; 83880; 84100; 84155; 84165; 84484; 85025; 85027; 85379; 85610; 85651; 85730; 86038; 86140; 86256; 86618; 86850; 86900; 86901; 87040; 87086; 87804; 87807; 93005; 93010; 97116-GP; 97162-GP; 99285-25; C9399; C9803; J0131; J1100; Q9967; U0003; U0005